=== PATIENT | female | born 1990 | race African-American/Black ===

== ENCOUNTER 2016-11-14 17:36 | Emergency (ER) | payer OTHER ==
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
== END 2016-11-14 20:50 | disposition home or self-care (01) ==
LOC: SED 17:36
DX: S46.912A Strain of unspecified muscle, fascia and tendon at shoulder and upper arm level, left arm, initial encounter (principal); F17.200 Nicotine dependence, unspecified, uncomplicated; V43.52XA Car driver injured in collision with other type car in traffic accident, initial encounter; Y93.89 Activity, other specified; Y92.410 Unspecified street and highway as the place of occurrence of the external cause
CPT/HCPCS: 71010; 73030; 73060; 84703; 99284